=== PATIENT | female | born 1935 | race Caucasian/White ===

== ENCOUNTER 2016-08-07 09:50 | Emergency (ER) | payer MEDICARE ==
--- NOTE | 2016-08-07 11:10 | UC ---
Respiratory Complaint HPI - HPI Summary HPI Summary: Patient has had increased cough and SOB, cough is productive. HX of COPD, no medications does not visit a doctor. - History of Current Complaint Chief Complaint: UCRespiratory Stated Complaint: CHEST CONGESTION,COUGH-COPD Time Seen by Provider: 08/07/16 10:59 Hx Obtained From: Patient ?: No Onset/Duration: Sudden Onset, Lasting Days Timing: Constant Severity Initially: Mild Severity Currently: Moderate Character: Cough: Productive Aggravating Factors: Exertion, Deep Breaths Alleviating Factors: Nothing Associated Signs And Symptoms: Positive: Dyspnea, Wheezing, Sinus Discomfort - Risk Factors Pulmonary Embolism Risk Factors: Negative Cardiac Risk Factors: Negative Pseudomonas Risk Factors: Negative Tuberculosis Risk Factors: Negative - Allergies/Home Medications Allergies/Adverse Reactions: Allergies Allergy/AdvReac Type Severity Reaction Status Date / Time No Known Allergies Allergy Verified 08/07/16 10:09 PMH/Surg Hx/FS Hx/Imm Hx Previously Healthy: Yes Respiratory History Of: Reports: COPD - Surgical History Surgical History: Yes Surgery Procedure, Year, and Place: Right Hip ORIF, 2008, [facility] [place]; T&A, ~[place], [place] - Family History Known Family History: Positive: Respiratory Disease - Social History Alcohol Use: None Substance Use Type: None Smoking Status (MU): Never Smoked Tobacco Household Exposure Type: Cigarettes - Immunization History Most Recent Influenza Vaccination: Fall 2015 Most Recent Pneumonia Vaccination: Unknown Review of Systems Constitutional: Negative Skin: Negative Eyes: Negative ENT: Sore Throat, Nasal Discharge Respiratory: Shortness Of Breath, Cough Cardiovascular: Negative Gastrointestinal: Negative Genitourinary: Negative Motor: Negative Neurovascular: Negative Musculoskeletal: Negative Neurological: Negative Psychological: Negative All Other Systems Reviewed And Are Negative: Yes Physical Exam Triage Information Reviewed: Yes Appearance: Well-Nourished, Ill-Appearing, Pain Distress Vital Signs: Initial Vital Signs Temp 98.3 F 08/07/16 10:05 Pulse 98 08/07/16 10:05 Resp 18 08/07/16 10:05 BP 98/54 08/07/16 10:05 Pulse Ox 97 08/07/16 10:05 Vital Signs Reviewed: Yes Eye Exam: Normal Eyes: Positive: Conjunctiva Clear ENT: Positive: Pharyngeal erythema, TMs normal Dental Exam: Normal Neck exam: Normal Neck: Positive: Supple, Nontender, No Lymphadenopathy Respiratory: Positive: Decreased breath sounds, Wheezing, Inspiration, Other: - ribs tender with cough and deep breaths Cardiovascular Exam: Normal Cardiovascular: Positive: RRR, No Murmur, Pulses Normal Abdominal Exam: Normal Abdomen Description: Positive: Nontender, No Organomegaly, Soft Bowel Sounds: Positive: Present Musculoskeletal Exam: Normal Musculoskeletal: Positive: Strength Intact, ROM Intact, No Edema Neurological Exam: Normal Neurological: Positive: Alert, Muscle Tone Normal Psychological Exam: Normal Skin Exam: Normal UC Diagnostic Evaluation - Laboratory O2 Sat by Pulse Oximetry: 97 Respiratory Course/Dx - Course Course Of Treatment: hx obtained, exam performed, meds reviewed, xray obtained was viewed and read by Dr Mckeon, as COPD with patchy infiltrated. placed on medication and started on inhalers, was given a spacer. Educated on use of the medication and recommend finding a PCP - Differential Dx/Diagnosis Differential Diagnosis/HQI/PQRI: Airway Obstruction, Asthma, Bronchitis, Influenza, Laryngitis, Sinusitis Provider Diagnoses: COPD. URI. SOB. COUGH. dyspnea Discharge - Discharge Plan Condition: Stable Disposition: HOME Prescriptions: Albuterol HFA INHALER* [Ventolin HFA Inhaler*] 2 puff INH Q4H PRN #1 mdi PRN Reason: Cough Amoxicillin/Clavulanate TAB* [Augmentin TAB 875*] 875 mg PO BID #14 tab Salmeterol DISKUS (NF) [Serevent Diskus (NF)] 1 puff INH BID #1 diskus predniSONE TAB* [Deltasone TAB*] 20 mg PO DAILY #7 tab Patient Education Materials: Chronic Lung Disease and Infection Prevention (ED) , Salmeterol (By breathing), Albuterol (By breathing) Referrals: No Primary Care Phys,NOPCP [Primary Care Provider] - Additional Instructions: 1. take the medication as prescribed. 2. Exercise and rest as your body tolerates. 3. Follow up with any increase in symtpoms 4. I recommend finding a regular docotr that can help you continue your care.
[2016-08-07 12:07] VITALS: BP 104/47
--- NOTE | 2016-08-07 12:37 | RAD ---
HISTORY: Shortness of breath, cough COMPARISONS: April 09, 2008 VIEWS: 2: Frontal dual-energy and lateral views of the chest. FINDINGS: CARDIOMEDIASTINAL SILHOUETTE: The cardiomediastinal silhouette is normal. SHAILESH: The shailesh are normal. PLEURA: The costophrenic angles are sharp. No pleural abnormalities are noted. LUNG PARENCHYMA: There is hyperinflation with flattening of the diaphragm and expansion of the AP diameter of the chest. There is confluent alveolar opacification of the left lower lung ABDOMEN: The upper abdomen is clear. There is no subphrenic gas. BONES AND SOFT TISSUES: There is diffuse osteopenia with degenerative changes OTHER: None. IMPRESSION: COPD WITH CONSOLIDATION OF THE LEFT LOWER LUNG. RECOMMEND FOLLOW-UP UNTIL RESOLUTION TO EXCLUDE UNDERLYING PULMONARY PARENCHYMAL PATHOLOGY.
== END 2016-08-07 12:34 | disposition home or self-care (01) ==
LOC: UCCORT 09:50
DX: J44.9 Chronic obstructive pulmonary disease, unspecified (principal); J06.9 Acute upper respiratory infection, unspecified; R06.02 Shortness of breath; R05 Cough; R06.00 Dyspnea, unspecified; Z77.22 Contact with and (suspected) exposure to environmental tobacco smoke (acute) (chronic)
CPT/HCPCS: 71020; 99203; G0463

== ENCOUNTER 2017-04-12 09:37 | Emergency (ER) | payer MEDICARE ==
[2017-04-12 11:09] VITALS: BP 122/58
--- NOTE | 2017-04-12 11:20 | UC ---
Respiratory Complaint HPI - HPI Summary HPI Summary: 81 y/o female presents to the urgent care c/o productive cough, chest congestion , subjective fever at home, chills at times for the past week. Pt states she has Hx of COPD due to her second hand smoking exposure for many years. Symptoms started w/ common cold with nasal congestion and clear nasal discharge. Pt has taken Tylenol to alleviate symptoms. Pt denies SOB, wheezing, chest pain, dizziness, MOONEY, body aches, abdominal pain, N/V/D. She is UTD with flu vaccine. - History of Current Complaint Chief Complaint: UCRespiratory Stated Complaint: COUGH CONGESTION Time Seen by Provider: 04/12/17 11:08 Hx Obtained From: Patient ?: No - menopausal Onset/Duration: Gradual Onset, Lasting Weeks - 1 week, Still Present, Worse Since - yesterday Timing: Constant Severity Initially: Mild Severity Currently: Moderate Pain Intensity: 0 Pain Scale Used: 0-10 Numeric Character: Cough: Productive, Sputum Description: - yellowish Aggravating Factors: Recumbent Position Alleviating Factors: Nothing Associated Signs And Symptoms: Positive: Fever, URI, Nasal Congestion, Sinus Discomfort. Negative: Wheezing - Risk Factors Pulmonary Embolism Risk Factors: Negative Cardiac Risk Factors: Negative Pseudomonas Risk Factors: Negative Tuberculosis Risk Factors: Negative - Allergies/Home Medications Allergies/Adverse Reactions: Allergies Allergy/AdvReac Type Severity Reaction Status Date / Time No Known Allergies Allergy Verified 04/12/17 11:09 PMH/Surg Hx/FS Hx/Imm Hx Previously Healthy: Yes Respiratory History: COPD - Surgical History Surgical History: Yes Surgery Procedure, Year, and Place: Right Hip ORIF, 2008, [facility] [place]; T&A, ~1940, [place] - Family History Known Family History: Positive: Respiratory Disease - COPD - Social History Occupation: Retired Lives: With Family Alcohol Use: None Substance Use Type: None Smoking Status (MU): Never Smoked Tobacco Household Exposure Type: Cigarettes - Immunization History Most Recent Influenza Vaccination: Fall 2015 Most Recent Pneumonia Vaccination: Unknown Vaccination Up to Date: Yes Review of Systems Constitutional: Fever - subjective at home Skin: Negative Eyes: Negative ENT: Nasal Discharge, Sinus Congestion Respiratory: Shortness Of Breath - mild at times, Cough - productive Cardiovascular: Negative Gastrointestinal: Negative Genitourinary: Negative Motor: Negative Neurovascular: Negative Musculoskeletal: Negative Neurological: Negative Psychological: Negative Is Patient Immunocompromised?: No All Other Systems Reviewed And Are Negative: Yes Physical Exam Triage Information Reviewed: Yes Vital Signs: Initial Vital Signs Temp 100.2 F 04/12/17 11:04 Pulse 100 04/12/17 11:04 Resp 16 04/12/17 11:04 BP 122/58 04/12/17 11:04 Pulse Ox 95 04/12/17 11:04 - Additional Comments Vital Signs Reviewed: Yes General: well developed, well nourished female sitting in the examining table w/ o any apparent distress Eyes: Positive: Conjunctiva Clear - PERRLA, EOMI, fundi grossly normal ENT: Positive: Normal ENT inspection, Hearing grossly normal, Pharynx normal, Nasal congestion - edematous and erythematous nasal mucosa, Nasal drainage - yellowish drainage, TMs normal. Negative: Tonsillar swelling, Tonsillar exudate Neck: Positive: Supple, Nontender, No Lymphadenopathy Respiratory: no orthopnea or dyspnea. Able to speak in full sentences, no retractions or accessory muscle use, no tripod position, stridor, or head bobbing. breath sound bilaterally, B/L lungs with scattered rhonchi, no wheezes , crackles or rales Cardiovascular: Positive: RRR, No Murmur, Pulses Normal, Brisk Capillary Refill Abdomen Description: Positive: Nontender, No Organomegaly, Soft. Negative: CVA Tenderness (R), CVA Tenderness (L) Bowel Sounds: Positive: Present Musculoskeletal Exam: Normal Musculoskeletal: Positive: Strength Intact, ROM Intact, No Edema Neurological Exam: Normal Psychological Exam: Normal Skin Exam: Normal UC Diagnostic Evaluation - Laboratory O2 Sat by Pulse Oximetry: 95 Respiratory Course/Dx - Course Course Of Treatment: 81 y/o female presents to the urgent care c/o productive cough, chest congestion, subjective fever at home, chills at times for the past week. Pt states she has Hx of COPD due to second hand smoking exposure for many years. Symptoms started w/ common cold with nasal congestion and clear nasal discharge. Pt has taken Tylenol to alleviate symptoms. Pt denies SOB, wheezing, chest pain, dizziness, MOONEY, body aches, abdominal pain, N/V/D. She is UTD with flu vaccine.Hx obtaeined. pt with B/L with scattered rhonchi on examination. Chest X-ray ordered to r/o pneumonia. Impression: No active Cardiopulmonary disease observed. O2sat: 95%, Temp: 100.2F . Pt given tylenol PO , Prednisone 60 mg PO and Duneb treatment at the clinic. Pt tolerated well medications and her lungs improved. Pt states feeling better. Pt will be Tx for Acute Bronchitis and COPD exacerbation, Rx Doxycycline PO , Prednisone taper dose and Inhaler. Strongly advised to f/u with her PCP for further management on her COPD. Pt understood and agreed with D/C instructions and left the clinic hemodynamically stable. - Differential Dx/Diagnosis Differential Diagnosis/HQI/PQRI: Asthma, Bronchitis, Exacerbation Of COPD, Influenza, Lower Resp Infection, Sinusitis Provider Diagnoses: 1- Acute Bronchitis. 2-COPD exacerbation Discharge - Discharge Plan Condition: Stable Disposition: HOME Prescriptions: Albuterol HFA INHALER* [Ventolin HFA Inhaler*] 1 - 2 puff INH Q6H PRN #1 mdi PRN Reason: Cough Albuterol/Ipratropium NEB.CHIP* [Duoneb (Albuterol 2.5 MG/Ipratropium 0.5 MG)] 1 neb INH Q4H PRN #1 neb.chip PRN Reason: Cough Benzonatate CAP* [Tessalon 100 MG CAP*] 100 mg PO TID #28 cap DOXYcycline CAP(*) [DOXYcycline 100MG CAP(*)] 100 mg PO BID #20 cap predniSONE TAB* [Deltasone TAB*] 20 mg PO DAILY #8 tab Patient Education Materials: Acute Bronchitis (ED), COPD (Chronic Obstructive Pulmonary Disease) (ED) Referrals: [facility] [place] PHYSICIAN REFERRAL [Outside] - 3 Days Additional Instructions: 1-Please take full course of antibiotic to avoid resistance. Take Prednisone PO as directed starting tomorrow. First dose given today at the clinic 2-Take Tessalon PO tabs as directed and use the albuterol inhaler to alleviate cough. Increase fluid intake, rest and eat well. 3- If symptoms do not improve or worsen or your develop SOB with fever and severe wheezing please go immediately to the ER further evaluation and treatment. 4- F/u with your PCP in 2-3 days for further management on your COPD
[2017-04-12] MEDS ORDERED: Albuterol/Ipratropium NEB.SOL* Albuterol 2.5 MG/Ipratropium 0.5 MG 3 ML INH ONE (11:21)
[2017-04-12] MEDS ORDERED: predniSONE TAB* 20 MG PO ONE (11:21)
[2017-04-12] MEDS ORDERED: Acetaminophen TAB* 325 MG PO ONE (11:26)
--- NOTE | 2017-04-12 11:52 | RAD ---
INDICATION: Cough, fever and a patient with a history of COPD COMPARISON: Most recent chest x-ray is dated August 17, 2016 TECHNIQUE: PA and lateral views of the chest were obtained. FINDINGS: Again seen is the stigmata of chronic obstructive pulmonary disease including hyperaerated lungs, and a flattened diaphragm and increased retrosternal airspace. Stable 1 cm nodules at the bilateral lung bases are most consistent with nipple shadows The lungs are otherwise grossly clear. The heart and mediastinal structures are normal in size and morphology. Visualized bones are normal for the patient's age. There is no radiographic evidence of free air beneath the diaphragm IMPRESSION: STABLE CHRONIC APPEARANCE OF COPD.
== END 2017-04-12 12:32 | disposition home or self-care (01) ==
LOC: UCCORT 09:37
DX: J20.9 Acute bronchitis, unspecified (principal); J44.1 Chronic obstructive pulmonary disease with (acute) exacerbation
CPT/HCPCS: 71046; 99213; A9270-GY; G0463; J7512

== ENCOUNTER 2017-12-23 14:23 | Emergency (ER) | payer MEDICARE ==
[2017-12-23 14:59] VITALS: BP 136/60
--- NOTE | 2017-12-23 17:08 | UC ---
Respiratory Complaint HPI - HPI Summary HPI Summary: Pt c/o gradual onset of worsening cough and chest congestion. Pt has hx of COPD. Pt was never a primary smoker but lived with someone who smoked for over 50 years. Pt states baseline O2 is 95% on room air - History of Current Complaint Chief Complaint: UCRespiratory Stated Complaint: COUGH,UPPER RESPIRATORY Time Seen by Provider: 12/23/17 15:30 Hx Obtained From: Patient ?: No Onset/Duration: Gradual Onset, Lasting Days, Still Present Timing: Constant Severity Initially: Mild Severity Currently: Moderate Pain Intensity: 0 Pain Scale Used: 0-10 Numeric Character: Cough: Productive Aggravating Factors: Exertion, Deep Breaths, Recumbent Position Alleviating Factors: Nothing Associated Signs And Symptoms: Positive: Chills, Wheezing, URI, Nasal Congestion - Risk Factors Pulmonary Embolism Risk Factors: Negative Cardiac Risk Factors: Negative Pseudomonas Risk Factors: Chronic Lung Disease Tuberculosis Risk Factors: Negative - Allergies/Home Medications Allergies/Adverse Reactions: Allergies Allergy/AdvReac Type Severity Reaction Status Date / Time No Known Allergies Allergy Verified 12/23/17 14:52 Home Medications: Home Medications Levocetirizine Dihydrochloride 5 mg PO DAILY 12/23/17 [History Confirmed ] PMH/Surg Hx/FS Hx/Imm Hx Previously Healthy: Yes - Surgical History Surgical History: Yes Surgery Procedure, Year, and Place: Right [place]IF, 2008[place] [facility] [place], ~[place], [place] - Family History Known Family History: Positive: Respiratory Disease - COPD - Social History Occupation: Retired Lives: With Family Alcohol Use: None Substance Use Type: None Smoking Status (MU): Never Smoked Tobacco Have You Smoked in the Last Year: No Household Exposure Type: Cigarettes - Immunization History Most Recent Influenza Vaccination: Fall 2015 Most Recent Pneumonia Vaccination: Unknown Vaccination Up to Date: Yes Review of Systems Constitutional: Chills, Fatigue Skin: Negative Eyes: Negative ENT: Sinus Congestion Respiratory: Shortness Of Breath, Cough Cardiovascular: Negative Gastrointestinal: Negative Genitourinary: Negative Motor: Negative Neurovascular: Negative Musculoskeletal: Negative Neurological: Negative Psychological: Negative Is Patient Immunocompromised?: No All Other Systems Reviewed And Are Negative: Yes Physical Exam Triage Information Reviewed: Yes Appearance: Well-Appearing Vital Signs: Initial Vital Signs Temp 99.7 F 12/23/17 14:53 Pulse 52 12/23/17 14:53 Resp 20 12/23/17 14:53 BP 136/60 12/23/17 14:53 Pulse Ox 95 12/23/17 14:53 Vital Signs Reviewed: Yes Eye Exam: Normal ENT: Positive: Nasal congestion Dental Exam: Normal Neck exam: Normal Respiratory: Positive: No respiratory distress, Wheezing Cardiovascular: Positive: Other: - regular irregular Musculoskeletal Exam: Normal Neurological Exam: Normal Psychological Exam: Normal Skin Exam: Normal UC Diagnostic Evaluation - Laboratory O2 Sat by Pulse Oximetry: 95 Respiratory Course/Dx - Differential Dx/Diagnosis Differential Diagnosis/HQI/PQRI: Bronchitis, Influenza Provider Diagnoses: Bronchitis Discharge - Sign-Out/Discharge Documenting (check all that apply): Patient Departure All imaging exams completed and their final reports reviewed: No Studies - Discharge Plan Condition: Stable Disposition: HOME Prescriptions: Albuterol HFA INHALER* [Ventolin HFA Inhaler*] 1 - 2 puff INH Q6H PRN #1 mdi PRN Reason: Sob/Wheezing predniSONE TAB* [Deltasone 20 MG TAB*] 20 mg PO DAILY #4 tab Sulfamethox/Trimethoprim DS* [Bactrim DS 800/160 TAB*] 1 tab PO Q12H #20 tab Patient Education Materials: Acute Bronchitis (ED) Referrals: Nash Villalobos MD [Primary Care Provider] - 5 Days Additional Instructions: Please follow up with your PCP in 5 days or earlier if needed. Please use your prescribed nebulizer medication as directed. - Billing Disposition and Condition Condition: STABLE Disposition: Home
== END 2017-12-23 15:52 | disposition home or self-care (01) ==
LOC: UCCORT 14:23
DX: J40 Bronchitis, not specified as acute or chronic (principal); Z77.22 Contact with and (suspected) exposure to environmental tobacco smoke (acute) (chronic)
CPT/HCPCS: 99212; G0463